=== PATIENT | female | born 1990 | race Caucasian/White ===

== ENCOUNTER 2016-12-15 20:45 | Day surgery (SDC) | payer OTHER ==
--- NOTE | 2016-12-15 21:16 | ED Physician Documentation ---
PD HPI ABD PAIN - Stated complaint Stated Complaint: ABD PX - Chief complaint Chief Complaint: Abd Pain - History obtained from History obtained from: Patient - History of Present Illness Timing - onset: Enter time (14:30), Today Timing - details: Gradual onset, Constant, Waxing and waning Pain level now: 6 Quality: Pain Location: RLQ, Suprapubic Radiation: Other (no radiation) Improved by: Laying still Worsened by: Moving, Palpation Associated symptoms: No: Fever, Nausea, Vomiting, Diarrhea, Constipation Similar symptoms before: Has not had sx before Recently seen: Not recently seen Review of Systems Constitutional: denies: Fever, Chills, Sweats Eyes: reports: Reviewed and negative Ears: reports: Reviewed and negative Nose: reports: Reviewed and negative Throat: reports: Reviewed and negative Cardiac: reports: Reviewed and negative Respiratory: reports: Reviewed and negative GI: reports: Abdominal Pain. denies: Abdominal Swelling, Nausea, Vomiting, Constipation, Diarrhea : denies: Dysuria, Frequency Skin: reports: Reviewed and negative Musculoskeletal: reports: Reviewed and negative Neurologic: reports: Reviewed and negative PD PAST MEDICAL HISTORY - Past Medical History Past Medical History: Yes Musculoskeletal: Scoliosis - Past Surgical History Past Surgical History: Yes Ortho: Spine surgery - Present Medications Home Medications: Ambulatory Orders Medication Instructions Recorded Confirmed No Known Home Medications [No 11/22/15 12/15/16 Known Home Medications] - Allergies Allergies/Adverse Reactions: Allergies Allergy/AdvReac Type Severity Reaction Status Date / Time control pills AdvReac Unknown Uncoded 12/16/16 02:14 - Social History Does the pt smoke?: No Smoking Status: Never smoker Does the pt have substance abuse?: No - Immunizations Immunizations are current?: Yes PD ED PE NORMAL - Vitals Vital signs reviewed: Yes - General General: Alert and oriented X 3, No acute distress (NAD at rest, appears to have some painful discomfort with movement), Well developed/nourished - HEENT HEENT: Moist mucous membranes - Cardiac Cardiac: RRR, No murmur - Respiratory Respiratory: No respiratory distress, Clear bilaterally - Abdomen Abdomen: Soft, Non distended, Other (RLQ tenderness without rebound or guarding. Milder tenderness noted LLQ without Rovsing's sign) - Back Back: No CVA TTP - Derm Derm: Normal color, Warm and dry - Extremities Extremities: No edema Results - Vitals Vitals: Vital Signs - 24 hr 12/15/16 12/15/16 12/15/16 20:52 21:49 22:52 Temperature 36.7 C 37.3 C 36.8 C Heart Rate 73 63 77 Respiratory 16 15 15 Rate Blood Pressure 91/58 L 107/72 111/58 L O2 Saturation 100 99 100 12/16/16 12/16/16 12/16/16 01:40 01:45 01:50 Temperature Heart Rate Respiratory Rate Blood Pressure O2 Saturation 100 100 100 12/16/16 12/16/16 12/16/16 01:55 02:00 02:05 Temperature Heart Rate Respiratory Rate Blood Pressure O2 Saturation 100 100 100 12/16/16 12/16/16 12/16/16 02:10 02:15 02:30 Temperature Heart Rate Respiratory Rate Blood Pressure O2 Saturation 100 100 99 12/16/16 02:45 Temperature Heart Rate Respiratory Rate Blood Pressure O2 Saturation 99 Oxygen O2 Source Room air - Labs Labs: Laboratory Tests 12/15/16 12/15/16 12/15/16 21:40 21:53 22:37 WBC 19.4 H RBC 5.11 Hgb 14.8 Hct 43.8 MCV 85.7 MCH 29.0 MCHC 33.9 RDW 13.0 Plt Count 323 MPV 7.4 L Neut # 17.2 H Lymph # 1.4 L Tripp # 0.7 Eos # 0.1 Baso # 0.0 Absolute Nucleated RBC 0.02 Nucleated RBCs 0.1 Sodium 136 Potassium 3.6 Chloride 103 Carbon Dioxide 24 Anion Gap 9.0 BUN 7 Creatinine 0.5 Estimated GFR (MDRD) 150 Glucose 104 H Calcium 9.3 Total Bilirubin 1.2 H AST 15 ALT 12 Alkaline Phosphatase 50 Total Protein 7.1 Albumin 4.2 Globulin 2.9 Albumin/Globulin Ratio 1.4 Lipase 18 L Urine Color YELLOW Urine Clarity CLEAR Urine pH 8.0 H Ur Specific [place] 1.020 Urine Protein NEGATIVE Urine Glucose (UA) NEGATIVE Urine Ketones 15 H Urine Occult Blood NEGATIVE Urine Nitrite NEGATIVE Urine Bilirubin NEGATIVE Urine Urobilinogen 0.2 (NORMAL) Ur Leukocyte Esterase NEGATIVE Ur Microscopic Review NOT INDICATED Urine Culture Comments NOT INDICATED Urine HCG, Qual NEGATIVE - Rads (name of study) CT A/P Radiology: Prelim report reviewed, See rad report PD MEDICAL DECISION MAKING - ED course Complexity details: reviewed results, re-evaluated patient, considered differential, d/w patient ED course: D/W Dr. Miles who then came to ED and took patient to ED Departure - Departure Disposition: ED Transfer to [facility] Clinical Impression: Appendicitis Qualifiers: Appendicitis type: acute appendicitis Acute appendicitis type: unspecified acute appendicitis type Qualified Code(s): K35.80 - Unspecified acute appendicitis Condition: Good Discharge Date/Time: 12/16/16 00:39
[2016-12-15 22:00] LABS: BILIRUBIN,URINE NEGATIVE (NEGATIVE)
[2016-12-15 22:00] LABS: BASOPHILS % (AUTO) 0.2 %; EOSINOPHILS # (AUTO) 0.1 10^3/uL (0.0-0.7); EOSINOPHILS % (AUTO) 0.3 %; HCT - HEMATOCRIT 43.8 % (37.0-47.0); HGB - HEMOGLOBIN 14.8 g/dL (12.0-16.0); LYMPHOCYTES # (AUTO) 1.4 10^3/uL (1.5-3.5); LYMPHOCYTES % (AUTO) 7.4 %; MEAN CORPUSCULAR HGB CONC 33.9 g/dL (32.0-36.0); MEAN CORPUSCULAR VOLUME 85.7 fL (81.0-99.0); MEAN PLATELET VOLUME 7.4 fL (7.9-10.8); MONOCYTES # (AUTO) 0.7 10^3/uL (0.0-1.0); MONOCYTES % (AUTO) 3.8 %; NEUTROPHILS # (AUTO) 17.2 10^3/uL (1.5-6.6); NEUTROPHILS % (AUTO) 88.3 %; NUCLEATED RED BLOOD CELLS AUTO 0.1 /100WBC; RED BLOOD COUNT 5.11 10^6/uL (4.20-5.40); UNCORRECTED WHITE BLOOD COUNT 19.4 x10^3/uL; WHITE BLOOD COUNT 19.4 x10^3/uL (4.8-10.8)
[2016-12-15 22:03] LABS: HCG UR QUAL NEGATIVE; UA CHARGE (STRIP ONLY) YES; UR CULTURE IF IND NOT INDICATED
[2016-12-15] MEDS ORDERED: IOPAMIDOL-300 100 ML VIAL IVP ONE (22:20)
--- NOTE | 2016-12-15 22:47 | CT Preliminary Report ---
Exam: CT Abdomen/Pelvis W/ IMPRESSION: 1. Irregular shaped corpus luteum cyst seen in the right ovary, measures 1.7 x 2.8 cm, suspect this i s collapsing. Small free fluid in the anterior cul-de-sac. 2. The appendix is diffusely filled with fluid and measures borderline abnormal at 7 mm. There is dif fuse enhancement of the salguero of the appendix. There is a small amount of free fluid adjacent to the tip of the appendix in the right side of the pelvis. This could represent early acute appendicitis an d the appropriate clinical setting. 3. Multiple left-sided renal calculi, nonobstructing. 4. Otherwise, as above. [facility] SITE ID: [id number]
--- NOTE | 2016-12-15 22:50 | CT Report ---
EXAM: CT ABDOMEN AND PELVIS EXAM DATE: 12/15/2016 10:19 PM. CLINICAL HISTORY: Right lower quadrant pain. COMPARISONS: None. TECHNIQUE: Routine helical CT imaging was performed through the abdomen and pelvis. IV contrast: 100 mL Isovue 300. Enteric contrast: No. Reconstructions: Coronal and sagittal. In accordance with CT protocol optimization, one or more of the following dose reduction techniques w ere utilized for this exam: automated exposure control, adjustment of mA and/or KV based on patient s ize, or use of iterative reconstructive technique. FINDINGS: Evaluation limited due to the metal artifact from the patient's thoracolumbar hardware. Lung Bases: Unremarkable. Liver: Normal. No masses. Gallbladder/Bile Ducts: Unremarkable. Spleen: Normal. Pancreas: Normal. Adrenal Glands: Normal. Kidneys: Multiple left renal calculi, the largest seen is at the lower pole left kidney measuring 5 m m. No hydronephrosis. No ureteral calculi. The right kidney appears within normal limits. Peritoneal Cavity/Bowel: The appendix is diffusely filled with fluid and measures borderline abnormal at 7 mm. There is diffuse enhancement of the salguero of the appendix. There is a small amount of free fluid adjacent to the tip of the appendix in the right side of the pelvis. This could represent early acute appendicitis and the appropriate clinical setting. Multiple fluid distended small bowel loops are seen in the pelvis Pelvic Organs: The uterus is anteverted. Irregular shaped corpus luteum cyst seen in the right ovary, measures 1.7 x 2.8 cm, suspect this is collapsing. The bladder is decompressed. Small amount of free fluid in the anterior cul-de-sac. Vasculature: No aneurysms or other significant abnormality. IMPRESSION: 1. Irregular shaped corpus luteum cyst seen in the right ovary, measures 1.7 x 2.8 cm, suspect this i s collapsing. Small free fluid in the anterior cul-de-sac. 2. The appendix is diffusely filled with fluid and measures borderline abnormal at 7 mm. There is dif fuse enhancement of the salguero of the appendix. There is a small amount of free fluid adjacent to the tip of the appendix in the right side of the pelvis. This could represent early acute appendicitis an d the appropriate clinical setting. 3. Multiple left-sided renal calculi, nonobstructing. 4. Otherwise, as above. [facility] Referring Provider Line: [phone] SITE ID: [id number]
[2016-12-15 22:53] VITALS: BP 111/58
[2016-12-15 22:54] LABS: ALBUMIN/GLOBULIN RATIO 1.4 (1.0-2.2); BILIRUBIN,TOTAL 1.2 mg/dL (0.2-1.0); CALCIUM 9.3 mg/dL (8.5-10.3); CREATININE 0.5 mg/dL (0.4-1.0); POTASSIUM 3.6 mmol/L (3.5-5.0); TOTAL PROTEIN 7.1 g/dL (6.7-8.2)
[2016-12-15] MEDS ORDERED: PIPERACILLIN/TAZOBACTAM 3.375 GM in SODIUM CHLORIDE 0.9% MINIBAG 100 ML IV ONE (23:59)
[2016-12-16] MEDS ORDERED: SUCCINYLCHOLINE 200 MG/10 ML VIAL IVP ONE (00:15)
[2016-12-16] MEDS ORDERED: DEXAMETHASONE 4 MG/ML VIAL IVP ONE (00:15)
[2016-12-16] MEDS ORDERED: ROCURONIUM 50 MG/5 ML VIAL IVP ONE (00:15)
[2016-12-16] MEDS ORDERED: NEOSTIGMINE 1 MG/1 ML 10 ML MDV IVP ONE (00:15)
[2016-12-16] MEDS ORDERED: GLYCOPYRROLATE 1 MG/5 ML VIAL IVP ONE (00:15)
[2016-12-16] MEDS ORDERED: ONDANSETRON 4 MG/2 ML VIAL IVP ONE (00:15)
[2016-12-16] MEDS ORDERED: MIDAZOLAM 2 MG/2 ML VIAL IVP ONE (00:15)
[2016-12-16] MEDS ORDERED: LIDOCAINE-MPF 2% 5 ML VIAL IM ONE (00:15)
[2016-12-16] MEDS ORDERED: BUPIVACAINE 0.5% PF 30 ML VIAL INFIL ONE (01:12)
[2016-12-16] MEDS ORDERED: LACTATED RINGERS 1,000 ML IV ONE (01:45)
[2016-12-16] MEDS ORDERED: oxyCODONE/ACET 5/325 Prepack 4 PO STA (01:55)
[2016-12-16] MEDS ORDERED: oxyCODONE/ACET 5/325 Prepack 4 PO ONE (01:59)
--- NOTE | 2016-12-16 02:50 | OPERATIVE REPORT ---
DATE OF SURGERY: 12/16/2016 00:00:00 TIME: 0135 hours PREOPERATIVE DIAGNOSIS: Acute appendicitis. POSTOPERATIVE DIAGNOSIS: Acute appendicitis. NAME OF PROCEDURE: Laparoscopic appendectomy. SURGEON: Dominik Miles M.D. ANESTHESIOLOGIST: Luis ANESTHESIA: General endotracheal, plus 30 mL of 0.5% Marcaine. COMPLICATIONS: None. ESTIMATED BLOOD LOSS: Less than 5 mL. FLUIDS: 800 mL of crystalloid. SPECIMEN REMOVED: Appendix. DETAILS OF PROCEDURE: After informed consent was obtained detailing the risks of infection, bleeding with all of its risks including transfusion, and , the patient was brought to the operative diana te and placed supine on the operating room table. The patient received preoperative antibiotics for prophylaxis against surgical infection. The patient had SHEILA stockings and Venodynes placed for proph ylaxis against deep venous thrombosis. The patient then had general anesthesia induced by Geoff aguirre, and Geoff Smith provided anesthesia care for the entirety of the case. The patient was then p repped and draped in the usual sterile manner. At this point, a time-in was done that confirmed the patient's identity via three separate identifiers, including her name, medical record number, and bir th date. We confirmed that the history and physical was completed and in the chart. We confirmed th at the patient had signed consent. We confirmed the operation proposed. We confirmed the patient's allergies and medications, and confirmed that we had the personnel equipment required to perform the proposed procedure. With the agreement of everyone in the room, the operation was allowed to proceed . Her previous slightly supraumbilical incision scar was excised using a scalpel. Dissection down to t he linea alba was completed using Bovie electrocautery. The linea alba was incised, gaining entry in to the abdomen without incident. Through this was placed a 12 mm blunt-tipped, balloon-tipped cannul a, and the abdomen was insufflated initially to 15 mmHg with carbon dioxide, and eventually to 12 as the patient became slightly bradycardic. Two additional ports were placed, both 5 mm, with one above the umbilical port and one below it. The appendix was then seen in the right lower quadrant. It no sheila to be inflamed and was with clearly acute appendicitis. The mesentery of the appendix was taken sequentially using LigaSure. Once the mesentery was taken to the appendix itself, the base of the ap pendix was stapled using an stapler with a white load. The appendix was then placed in an EndoPouch placed through the 12 mm port. All port sites were injected at the peritoneal, fascial, and skin lev els using 0.5% Marcaine. This was done under direct vision. All ports were removed, and the bag con taining the appendix was similarly removed from the abdomen. The fascia at just above the umbilicus was approximated using a 0-Vicryl suture in a jugxqv-fh-jzduq fashion. Two wdqzjh-zg-bqnax stitches were placed. The skin was approximated at all skin sites using Monocryl in a subcuticular fashion. The skin was cleaned of its prep. Mastisol and Steri-Strips were applied. The patient, having kelsi ated the procedure well, was extubated and taken to the recovery room in good and stable condition. JOB #: [id number] EXT JOB #:[id number]
[2016-12-16] MEDS ORDERED: oxyCOD/ACETAMIN 5 MG/325 MG TABLET PO ONE (06:30)
--- NOTE | 2016-12-17 06:38 | HISTORY & PHYSICAL EXAMINATION ---
DATE OF ADMISSION: 12/15/2016 REQUESTING PROVIDER: I am called in consultation by Dr. Rizwan Higgins to evaluate this very pleasant 26-year-old female for acute appendicitis. HISTORY OF PRESENT ILLNESS: The patient has a less than 24-hour history of generalized abdominal pain which then localized to the right lower quadrant. It was accompanied by some anorexia, as well as so me nausea and vomiting. The patient had 2 apax-qr-n-blanket at approximately 1:30 in the afternoon bu t stated that she really did not feel well eating them. The pain worsened to the point where her husb and brought her in, but even then there was a discussion between the two of them about whether or not she should have come in. There is no diarrhea or constipation. She has not had these symptoms previo usly. She states that these symptoms are similar to symptoms a friend of theirs had, I believe his na me is Opie, when he was diagnosed with appendicitis. ALLERGIES: NONE. MEDICATIONS: None. SOCIAL HISTORY Tobacco, none. Alcohol, none. Recreational drug use, none. FAMILY HISTORY: She is of [place] descent. REVIEW OF SYSTEMS CONSTITUTIONAL: She denies any unexpected or unwarranted weight loss, fevers. HEAD, EYES, EARS, NOSE, AND THROAT: She denies any change in her vision or hearing, better or worse. NECK: She denies difficulty swallowing, speaking or breathing. CARDIAC: She denies any chest pain or pressure. RESPIRATORY: She denies shortness of breath or productive cough. GASTROINTESTINAL: Please see above. GENITOURINARY: She denies difficulty urinating or burning while urinating. MUSCULOSKELETAL: She denies any unexpected aches and pains. PAST MEDICAL AND SURGICAL HISTORY: Positive for some scoliosis and spine surgery. PHYSICAL EXAMINATION GENERAL: This is a 26-year-old female who appears her stated age. She is evaluated in Room 7 at [facility]'s Emergency Department. Her mood and affect are appropriate. She a sks and answers questions well. VITAL SIGNS: Please refer to nurse's note. HEAD, EYES, EARS, NOSE, AND THROAT: She is normocephalic, atraumatic. Her sclerae are noninjected, no nicteric. Mucous membranes are pink and slightly dry. She does speak with a lisp. NECK: Supple without mass or bruits. HEART: Regular rate and rhythm without rub, murmur or gallop. LUNGS: Clear to auscultation bilaterally anterolaterally. ABDOMEN: Soft, nondistended. She has tenderness in the right lower quadrant but not at McBurney point . It is a little bit more medial than McBurney point. SKIN: Warm, normal color, and dry. EXTREMITIES: No clubbing, cyanosis, or edema. GAIT: Not evaluated. LABORATORY DATA: Abnormalities on her labs: Chemistry has a glucose of 104, total bilirubin of 1.2, l ipase of 18. Abnormalities on her hematology: White count of 19.4, MPV of 7.4, neutrophils of 17.2, a nd lymphocytes of 1.4. The abdominopelvic CT that was read by Dr. Sierra is read as irregularly shaped corpus luteum cyst s een on the right ovary, measuring 1.7 x 2.8 cm, suspect this is collapsing with some small free fluid in the anterior cul-de-sac. The appendix was diffusely filled with fluid. It measures borderline abn ormal at 7 mm. There is diffuse enhancement of the wall of the appendix. There is a small amount of f ree fluid adjacent to the tip of the appendix in the right side of the pelvis. This could represent e daisy acute appendicitis in the appropriate clinical setting. Additionally, multiple left-sided renal calculi, nonobstructing. ASSESSMENT: A 26-year-old female with signs and symptoms and radiographic studies, as well as laborat ory studies that are consistent with acute appendicitis. PLAN: Laparoscopic appendectomy, possible open appendectomy. The indications, procedure, alternatives and possible complications, including but not limited to infection, bleeding with all of its risks i ncluding transfusion and , were fully explained to the patient and her and all questions answered. Verbal and written consent was obtained. I explained that in all likelihood, she will go h ome early this morning once the surgery is complete and she has been allowed a chance to recover. She will receive preoperative antibiotics for prophylaxis against surgical infection. She will have ____ ____placed for prophylaxis against deep venous thrombosis. I have asked her to let us know if there i s any way we can make her stay here at [facility] more comfortable to please let u s know. She stated that she would. All in all, 45 minutes of [id number]-[id number] time was spent with the patient, the majority of which was spe nt in discussion. 00:9:00 JOB #: [id number] EXT JOB #:[id number]
== END 2016-12-16 01:40 | disposition home or self-care (01) ==
LOC: ED 20:45 → SDS 23:40
PROVIDERS: ATTEND Surgery
PROC: 0DTJ4ZZ Resection of Appendix, Percutaneous Endoscopic Approach (ICD-10-PCS; principal; 2016-12-16 00:25)
DX: K35.80 Unspecified acute appendicitis (principal); M41.9 Scoliosis, unspecified
CPT/HCPCS: 36415; 44970; 74177; 80053; 81003; 81025; 83690; 85025; 99283; 99285; A9270; J7120; Q9967; 81001; 87086; 88304; 99284

== ENCOUNTER 2017-01-05 03:00 | Emergency (ER) | payer OTHER ==
--- NOTE | 2017-01-05 03:34 | ED Physician Documentation ---
PD HPI BACK PAIN - Stated complaint Stated Complaint: BACK PX - Chief complaint Chief Complaint: Back Pain - History obtained from History obtained from: Patient - History of Present Illness Timing - onset: How many hours ago (1) Timing - details: Abrupt onset Pain level max: 10 Pain level now: 10 Location: Left Quality: Pain Associated symptoms: No: Fever, Weakness, Numbness, Incontinent of urine, Unable to urinate, Hematuria, Incontinent of stool Improves with: Nothing Worsened by: Other (no exacerbating factors) Similar symptoms before: Has not had sx before Recently seen: Surgery (appendectomy 12/15) - Additional information Additional information: c/o sudden onset left flank pain waking her from sleep 1 hour ago Review of Systems Constitutional: reports: Reviewed and negative Cardiac: reports: Reviewed and negative Respiratory: reports: Reviewed and negative GI: reports: Nausea. denies: Abdominal Pain, Vomiting : denies: Dysuria, Frequency, Hematuria Musculoskeletal: reports: Back pain PD PAST MEDICAL HISTORY - Past Medical History Past Medical History: Yes Musculoskeletal: Scoliosis - Past Surgical History Past Surgical History: Yes General: Appendectomy Ortho: Spine surgery - Present Medications Home Medications: Ambulatory Orders Medication Instructions Recorded Confirmed HYDROmorphone [Dilaudid] 2 mg PO Q4H PRN #10 tablet 01/05/17 Ondansetron Odt [Zofran] 4 mg TL Q6H PRN #14 tablet 01/05/17 - Allergies Allergies/Adverse Reactions: Allergies Allergy/AdvReac Type Severity Reaction Status Date / Time control pills AdvReac Unknown Uncoded 12/16/16 02:14 - Social History Does the pt smoke?: No Smoking Status: Never smoker Does the pt drink ETOH?: Yes Does the pt have substance abuse?: No - Immunizations Immunizations are current?: Yes PD ED PE NORMAL - Vitals Vital signs reviewed: Yes - General General: Alert and oriented X 3, Well developed/nourished, Other (obvious painful distress) - Cardiac Cardiac: RRR, No murmur - Respiratory Respiratory: No respiratory distress, Clear bilaterally - Abdomen Abdomen: Normal bowel sounds, Soft, Non tender, Non distended - Back Back: No CVA TTP - Derm Derm: Normal color, Warm and dry Results - Vitals Vitals: Vital Signs - 24 hr 07/01/17 07/01/17 07/01/17 03:06 04:31 05:07 Temperature 36.7 C Heart Rate 57 L 50 L 54 L Respiratory 20 16 16 Rate Blood Pressure 111/79 116/75 111/74 O2 Saturation 100 100 100 01/05/17 01/05/17 05:51 06:34 Temperature Heart Rate 47 L 61 Respiratory 16 14 Rate Blood Pressure 113/60 95/56 L O2 Saturation 100 100 Oxygen O2 Source Room air - Labs Labs: Laboratory Tests 01/05/17 01/05/17 01/05/17 03:24 03:24 03:35 WBC 10.6 RBC 4.56 Hgb 13.1 Hct 39.2 MCV 85.9 MCH 28.8 MCHC 33.5 RDW 13.4 Plt Count 342 MPV 7.7 L Neut # 7.3 H Lymph # 2.9 [place] # 0.3 Eos # 0.1 Baso # 0.1 Absolute Nucleated RBC 0.01 Nucleated RBCs 0.1 Sodium 140 Potassium 3.1 L Chloride 107 Carbon Dioxide 24 Anion Gap 9.0 BUN 11 Creatinine 0.6 Estimated GFR (MDRD) 122 Glucose 119 H Calcium 9.8 Total Bilirubin 0.7 AST 15 ALT < 10 L Alkaline Phosphatase 51 Total Protein 7.9 Albumin 4.7 Globulin 3.2 Albumin/Globulin Ratio 1.5 Lipase 27 Urine Color YELLOW Urine Clarity CLEAR Urine pH 7.0 Ur Specific [place] 1.020 Urine Protein NEGATIVE Urine Glucose (UA) NEGATIVE Urine Ketones NEGATIVE Urine Occult Blood TRACE-INTA Urine Nitrite NEGATIVE Urine Bilirubin NEGATIVE Urine Urobilinogen 0.2 (NORMAL) Ur Leukocyte Esterase NEGATIVE Ur Microscopic Review NOT INDICATED Urine Culture Comments NOT INDICATED Urine HCG, Qual 01/05/17 03:35 WBC RBC Hgb Hct MCV MCH MCHC RDW Plt Count MPV Neut # Lymph # [place] # Eos # Baso # Absolute Nucleated RBC Nucleated RBCs Sodium Potassium Chloride Carbon Dioxide Anion Gap BUN Creatinine Estimated GFR (MDRD) Glucose Calcium Total Bilirubin AST ALT Alkaline Phosphatase Total Protein Albumin Globulin Albumin/Globulin Ratio Lipase Urine Color Urine Clarity Urine pH Ur Specific [place] 1.020 Urine Protein Urine Glucose (UA) Urine Ketones Urine Occult Blood Urine Nitrite Urine Bilirubin Urine Urobilinogen Ur Leukocyte Esterase Ur Microscopic Review Urine Culture Comments Urine HCG, Qual NEGATIVE - Rads (name of study) CT A/P Radiology: Prelim report reviewed, See rad report PD MEDICAL DECISION MAKING - ED course Complexity details: reviewed results, re-evaluated patient, considered differential, d/w patient Departure - Departure Disposition: Home, Self Care Clinical Impression: Renal colic on left side Condition: Good Instructions: ED Stone Renal W Colic Follow-Up: Nacho Wright MD [Primary Care Provider] - Prescriptions: HYDROmorphone [Dilaudid] 2 mg PO Q4H PRN #10 tablet PRN Reason: Pain Ondansetron Odt [Zofran] 4 mg TL Q6H PRN #14 tablet PRN Reason: Nausea / Vomiting Discharge Date/Time: 01/05/17 06:43
[2017-01-05 03:45] LABS: BILIRUBIN,URINE NEGATIVE (NEGATIVE)
[2017-01-05 03:47] LABS: UA CHARGE (STRIP ONLY) YES; UR CULTURE IF IND NOT INDICATED
[2017-01-05] MEDS ORDERED: HYDROmorphone 1 MG/ML SYRINGE IVP STA ×2 (03:47→05:17)
[2017-01-05] MEDS ORDERED: SODIUM CHLORIDE 0.9% 1,000 ML IV STA (03:47)
[2017-01-05] MEDS ORDERED: ONDANSETRON 4 MG/2 ML VIAL IVP STA (03:47)
[2017-01-05 03:48] LABS: HCG UR QUAL NEGATIVE
[2017-01-05] MEDS ORDERED: HYDROmorphone 1 MG/ML SYRINGE ONE ×2 (03:57→05:44)
[2017-01-05] MEDS ORDERED: ONDANSETRON 4 MG/2 ML VIAL ONE (03:57)
[2017-01-05] MEDS ORDERED: SODIUM CHLORIDE 0.9% 1,000 ML IV ONE (03:57)
[2017-01-05 04:02] LABS: BASOPHILS # (AUTO) 0.1 10^3/uL (0.0-0.1); BASOPHILS % (AUTO) 0.5 %; EOSINOPHILS # (AUTO) 0.1 10^3/uL (0.0-0.7); EOSINOPHILS % (AUTO) 0.5 %; HCT - HEMATOCRIT 39.2 % (37.0-47.0); HGB - HEMOGLOBIN 13.1 g/dL (12.0-16.0); LYMPHOCYTES # (AUTO) 2.9 10^3/uL (1.5-3.5); MEAN CORPUSCULAR HEMOGLOBIN 28.8 pg (27.0-31.0); MEAN CORPUSCULAR HGB CONC 33.5 g/dL (32.0-36.0); MEAN CORPUSCULAR VOLUME 85.9 fL (81.0-99.0); MEAN PLATELET VOLUME 7.7 fL (7.9-10.8); MONOCYTES # (AUTO) 0.3 10^3/uL (0.0-1.0); MONOCYTES % (AUTO) 3.3 %; NEUTROPHILS # (AUTO) 7.3 10^3/uL (1.5-6.6); NEUTROPHILS % (AUTO) 68.7 %; NUCLEATED RED BLOOD CELLS AUTO 0.1 /100WBC; RED BLOOD COUNT 4.56 10^6/uL (4.20-5.40); RED CELL DISTRIBUTION WIDTH 13.4 % (12.0-15.0); UNCORRECTED WHITE BLOOD COUNT 10.6 x10^3/uL; WHITE BLOOD COUNT 10.6 x10^3/uL (4.8-10.8)
[2017-01-05 04:12] LABS: ALBUMIN/GLOBULIN RATIO 1.5 (1.0-2.2); BILIRUBIN,TOTAL 0.7 mg/dL (0.2-1.0); BUN - BLOOD UREA NITROGEN 11 mg/dL (6-20); CALCIUM 9.8 mg/dL (8.5-10.3); CARBON DIOXIDE - CO2 24 mmol/L (21-32); CHLORIDE 107 mmol/L (101-111); CREATININE 0.6 mg/dL (0.4-1.0); GFR - MDRD 122 (>89); GLUCOSE 119 mg/dL (70-100); LIPASE 27 U/L (22-51); POTASSIUM 3.1 mmol/L (3.5-5.0); SODIUM 140 mmol/L (135-145); TOTAL PROTEIN 7.9 g/dL (6.7-8.2)
--- NOTE | 2017-01-05 05:06 | CT Report ---
EXAM: CT ABDOMEN AND PELVIS (CT KUB) EXAM DATE: 01/05/2017 04:51 AM. CLINICAL HISTORY: Left flank pain. COMPARISONS: 12/15/2016. TECHNIQUE: Routine axial helical CT imaging was performed through the abdomen and pelvis without IV c ontrast. Reconstructions: Coronal and sagittal. In accordance with CT protocol optimization, one or more of the following dose reduction techniques w ere utilized for this exam: automated exposure control, adjustment of mA and/or KV based on patient s ize, or use of iterative reconstructive technique. FINDINGS: Lung Bases: Unremarkable. Right Kidney/Ureter: Tiny nonobstructing right renal stone. No ureteral stones, hydronephrosis, or hy droureter. Left Kidney/Ureter: Moderately obstructing 6 x 4 mm distal left ureteral stone within a few millimete rs of the UVJ. Several other tiny nonobstructing left renal stones. Otherwise grossly unremarkable. Other Abdominal Organs: Noncontrast images of the abdominal organs are grossly unremarkable. Peritoneal Cavity: No free fluid, free air or jacquelyn adenopathy. No excessive stool burden. Bowel is g rossly unremarkable. Pelvic Organs: No bladder stones or gross wall thickening. Noncontrast images of the visualized pelvi c organs are unremarkable. Vasculature: Unremarkable. Other: Extensive previous spinal fusion.. IMPRESSION: 1. Moderately obstructing 6 x 4 mm distal left ureteral stone. 2. Tiny bilateral nonobstructing renal stones with left stone burden worse than right. [facility] Referring Provider Line: [phone] SITE ID: [id number]
--- NOTE | 2017-01-05 05:06 | CT Preliminary Report ---
Exam: CT Abdomen/Pelvis W/O IMPRESSION: 1. Moderately obstructing 6 x 4 mm distal left ureteral stone. 2. Tiny bilateral nonobstructing renal stones with left stone burden worse than right. [facility] SITE ID: [id number]
[2017-01-05] MEDS ORDERED: KETOROLAC 60 MG/2 ML VIAL IVP STA (05:17)
[2017-01-05] MEDS ORDERED: KETOROLAC 30 MG/ML VIAL ONE (05:44)
[2017-01-05 06:43] VITALS: BP 95/56
== END 2017-01-05 06:43 | disposition home or self-care (01) ==
LOC: ED 03:00
DX: N20.2 Calculus of kidney with calculus of ureter (principal); M41.9 Scoliosis, unspecified
CPT/HCPCS: 36415; 74176; 80053; 81003; 81025; 83690; 85025; 96374; 96375; 96376; 99283; 99284; J1170; 81001; 87086